=== PATIENT | female | born 1990 | race African-American/Black ===

== ENCOUNTER 2016-04-27 15:40 | Emergency (ER) | payer OTHER ==
[2016-04-27 16:21] LABS: WBC (NOT ORDERED) (RFLEX) 0 (0-5)
[2016-04-27 16:25] LABS: BASOPHILS 0.1 %; BASOPHILS ABSOLUTE 0.01 10/3/uL (0.0-0.16); EOSINOPHILS 0.2 %; EOSINOPHILS ABSOLUTE 0.03 10/3/uL (0.0-0.53); ER CBC TAT 0 Hrs 05 Mins; HEMATOCRIT 42.5 % (36.0-48.0); HEMOGLOBIN 13.8 g/dL (12.0-16.0); IMMATURE GRANULOCYTES 0.3 %; IMMATURE GRANULOCYTES ABSOLUTE 0.04 10/3/uL (0.0-0.11); LYMPHOCYTES 4.5 %; LYMPHOCYTES ABSOLUTE 0.54 10/3/uL (0.67-4.30); MEAN CORPUS HGB CONC 32.5 g/dL (32.0-36.0); MEAN CORPUSCULAR HEMOGLOB 26.6 pg (26.0-34.0); MEAN PLATELET VOLUME 10.1 fL (9.2-13.0); MONOCYTES 1.9 %; MONOCYTES ABSOLUTE 0.23 10/3/uL (0.21-1.20); NEUTROPHILS ABSOLUTE 11.23 10/3/uL (2.02-8.40); PLATELET COUNT 306 10/3/uL (150-400); RBC DISTRIBUTION WIDTH 13.6 % (12.0-16.0); RED CELL COUNT 5.18 10/6/uL (4.0-5.6); WHITE BLOOD CELLS 12.1 10/3/uL (4.5-10.5)
[2016-04-27 16:27] LABS: MANUAL DIFF NO %
[2016-04-27 16:31] LABS: ASCORBIC ACID (UR NOT ORDER) NEG (NEG); BILIRUBIN, URINE NEGATIVE (NEG); ER URINALYSIS TAT 0 Hrs 11 Mins; KETONE, URINE NEGATIVE (NEG); LEUKOCYTE ESTERASE(NOT OR NEG (NEG); NITRITE (URINE) NEG (NEG)
[2016-04-27 16:39] LABS: A/G RATIO 0.8 (0.7-1.9); ALKALINE PHOSPHATASE 91 U/L (45-117); CALCIUM, SERUM 9.2 MG/DL (8.5-10.4); CHLORIDE, SERUM 104 MMOL/L (96-112); CO2 (CARBON DIOXIDE) 27 MMOL/L (24-34); CREATININE 0.96 MG/DL (0.55-1.02); GFR AFRICAN AMERICAN 96 ML/MIN (>=60); GFR NON AFRICAN AMERICAN 83 ML/MIN (>=60); GLOBULIN 4.8 G/DL (2.5-4.1); GLUCOSE, SERUM 105 MG/DL (60-99); POTASSIUM, SERUM 4.2 MMOL/L (3.5-5.3); SGPT(ALT) 29 U/L (5-65); SODIUM, SERUM 141 MMOL/L (135-148); TOTAL PROTEIN 8.8 G/DL (6.0-8.5)
[2016-04-27 16:41] LABS: BUN (BLOOD UREA NITROGEN) 17 MG/DL (6-23); SGOT(AST) 17 U/L (5-40); TOTAL BILIRUBIN 0.4 MG/DL (0-1.2)
== END 2016-04-27 17:23 | disposition home or self-care (01) ==
LOC: ER 15:40
PROVIDERS: Physician Assistant
DX: R11.2 Nausea with vomiting, unspecified (principal); Z88.5 Allergy status to narcotic agent
CPT/HCPCS: 80053; 81001; 83690; 84703; 85025; 96374; 99284; J2405